=== PATIENT | male | born 1965 | race Caucasian/White ===

== ENCOUNTER → 2024-04-19 07:13 | Day surgery (SDC) | payer BC, SELFPAY ==
--- NOTE | 2024-04-19 08:47 | ITS.CL.CARDI ---
Equipment Planner - Cardioversion
Cardioversion
Procedure Report:
Date of Procedure:
Procedure: Cardioversion
Indication: Symptomatic atrial fibrillation
Performing Physician: Chris Webster MD
Technique: The patient was brought to the holding area. Signed informed consent was obtained. A time out was called and performed. The patient was anesthetized by the anesthesia service. Anticoagulation status was reviewed and appropriate. R2 pads
were placed anteriorly and posteriorly. After KENAN revealed no thrombus, A 200 J synchronized biphasic shock restored normal sinus rhythm without significant bradycardia. There were no complications.
Conclusion: Uncomplicated cardioversion from atrial fibrillation to sinus rhythm.
Recommendation: Routine post cardioversion care. Continue termite control representative anticoagulation.
== END ==
LOC: CATH 07:13
PROVIDERS: ATTENDING PHYSICIAN Internal Medicine Cardiovascular Disease; FAMILY PHYSICIAN Nurse Practitioner; OTHER PHYSICIAN Internal Medicine Cardiovascular Disease
DX: I48.0 Paroxysmal atrial fibrillation (principal); Z79.01 Long term (current) use of anticoagulants; I08.1 Rheumatic disorders of both mitral and tricuspid valves; I08.8 Other rheumatic multiple valve diseases
CPT/HCPCS: 93312; 93320; 93325; 92960; 93005

== ENCOUNTER → 2025-08-19 08:21 | Outpatient (REF) | payer BC, SELFPAY | LOC: RCS 08:21 | PROVIDERS: ATTENDING PHYSICIAN Internal Medicine Cardiovascular Disease; FAMILY PHYSICIAN Nurse Practitioner | DX: I48.0 Paroxysmal atrial fibrillation (principal) | CPT/HCPCS: 93306 ==